=== PATIENT | female | born 1995 | race Caucasian/White ===

== ENCOUNTER 2022-12-04 08:11 | Outpatient (CLI) | payer MEDICAID, SELFPAY ==
--- NOTE | 2022-12-04 08:45 | CRLHL7_ITS ---
For Patients: As a result of the Cures Act, medical imaging exams and procedure reports are released immediately into your electronic medical record. You may view this report before your referring provider. If you have questions, please contact your health care provider. INDICATION: First trimester scan, establish dates. COMPARISON: None. TECHNIQUE: Real-time huynh-scale imaging of the pelvis was performed. FINDINGS: Sonographic imaging demonstrates a single living intrauterine gestation. The embryo demonstrates a regular cardiac rate measuring 179 beats per minute. The embryo`s crown-rump length measurement of 1.9 cm corresponds to a gestational age of 8 weeks 3 days with a sonographic due date of 07/13/2023. There is a normal-appearing yolk sac. There are no gross abnormalities noted within the embryo at this early state of development. The gestational sac has a normal appearance. There is no evidence of a perigestational hemorrhage. The amount of fluid within the sac appears appropriate for gestational age. The cervix is closed. The myometrium appears normal. The ovaries are of normal size. Corpus luteal cyst left ovary. There are no suspicious fluid collections noted in the cul-de-sac. IMPRESSION: Normal first trimester OB ultrasound exam. Gestational age calculated at 8 weeks 3 days with a sonographic due date of 07/13/2023. Dictated by Marbin Husain MD @ 12/04/2022 10:56:34 AM (Electronically Signed)
== END 2022-12-04 08:12 | disposition home or self-care (01) ==
PROVIDERS: Visit Provider Advanced Practice Midwife
DX: Z34.91 Encounter for supervision of normal pregnancy, unspecified, first trimester (principal); Z3A.09 9 weeks gestation of pregnancy
CPT/HCPCS: 76817

== ENCOUNTER 2022-12-04 10:35 | Outpatient (CLI) | payer OTHER, SELFPAY ==
[2022-12-04 15:44] LABS: Hepatitis B Surface Antigen* Negative (Negative)
[2022-12-04 15:53] LABS: HIV 1/2/P24 Combo Screen* Negative (Negative)
[2022-12-04 16:02] LABS: Hepatitis C Virus Antibody* Negative (Negative)
[2022-12-06 01:15] LABS: Rapid Plasma Reagin (RPR) Non Reactive (Non Reactive)
[2022-12-06 04:04] LABS: Varicella-Zoster Virus Ab, IgG 303.6 IV
== END 2022-12-04 10:36 | disposition home or self-care (01) ==
PROVIDERS: Visit Provider Advanced Practice Midwife
DX: Z34.91 Encounter for supervision of normal pregnancy, unspecified, first trimester (principal); Z13.79 Encounter for other screening for genetic and chromosomal anomalies; Z84.89 Family history of other specified conditions; Z3A.09 9 weeks gestation of pregnancy
CPT/HCPCS: 81420; 86592; 86703; 86762; 86787; 86803; 86850; 86900; 86901; 87086; 87340

== ENCOUNTER 2022-12-10 13:18 | Emergency (ER) | payer OTHER, SELFPAY ==
[2022-12-10 13:29] VITALS: BP 119/82; PULSE 66; RESP 18; TEMP 36.7; O2SAT 100; BMI 31.1
--- NOTE | 2022-12-10 17:15 | ED.GENADULT ---
HPI - General Adult General Time Seen by Provider: 17:16 Date Seen: 12/10/22 Chief complaint: Nausea/Vomiting Stated complaint: Vomiting, Can't keep down water, 10 weeks Time Seen by Provider: 12/10/22 17:13 Source: patient and RN notes reviewed Mode of arrival: ambulatory Limitations: no limitations History of Present Illness HPI narrative: Patient is a 27-year-old female about 10 weeks coming in with nausea vomiting, generalized headache. She has had some morning sickness or nausea vomiting this . She had 1 prior with a different partner where she was not affected by nausea and vomiting. She states she has had an ultrasound, nose there is a single 10. She did do blood work to see the sex of the baby and found out on her ride in here that they are having a boy. She has had a history of some UTIs before but denies any urinary symptoms with this. She has not had any fevers or chills. The nausea and vomiting was severe today to the point that she was not able to even get crackers or fluids in. She did get some crackers from nursing staff while she was awaiting to be seen in the ED and has subsequently kept those down. She has been able to take a few sips of water while waiting to be seen. She denies any abdominal pain, no cramping, no vaginal discharge or bleeding. No visual changes, has been able to ambulate. [place] a little numbness tingling in extremities, all at the same time. She denies any respiratory symptoms with this. States she has had COVID twice before and had a headache with it both times. Would want to be tested for COVID. Related Data Home Medications Medication Instructions Recorded Confirmed prenat.vits,kalina,[id number] 1 tab PO QDAY 12/04/22 12/04/22 Allergies Allergy/AdvReac Type Severity Reaction Status Date / Time pseudoephedrine Allergy Intermediate Verified 12/04/22 09:34 [facility] oxycodone AdvReac Mild Vomiting Verified 12/04/22 09:34 prednisone AdvReac Mild Vomiting Verified 12/04/22 09:34 Review of Systems Status of ROS: Reports: 10 or more systems reviewed and unremarkable except as noted in History and below [facility] Medical History Costochondritis COVID-19 Vaginal delivery Surgical History [place] teeth removed Family History Mother No problems noted. Father No problems noted. Maternal Grandmother Breast cancer Maternal Grandfather No problems noted. Paternal Grandfather Myocardial infarction Stroke Paternal Grandmother No problems noted. Social History Narrative: SOCIAL Education: High school Work: [employer] Partner: [employer] Lives with: Chauncey Grossman's Dad (Rich), [place] (son 50%) Pets: Dog Abuse: Denies past/present, partner present Special Diet: Denies Ok with a blood transfusion: yes Culture or jainism beliefs: denies RISK FACTORS Exercise Times/wk: At work, otherwise not active Depression/Anxiety: Hx of both; on Zoloft; No therapist WILFRID: 6 PHQ 9: 2 Seat Belt Use: Routinely Smoking: Denies past/present Alcohol/day: Denies while ; Rare prior to Caffeine: Coffee, occasionally Drug Use: Denies past/present Chicken Pox: vaccinated MRSA: Denies Smoking Status: Never smoker How often do you have a drink containing alcohol: never AUDIT-C Alcohol total score: 0 Non-prescribed substance use: denies use Little interest or pleasure in doing things: not at all Feeling down, depressed, or hopeless: several days service: No Exam Const: Vital Signs, click to edit/add: Vital Signs - 24 hr 12/10/22 13:29 Temperature 98.1 F Pulse Rate [Pulse Oximeter] 66 Respiratory Rate 18 Blood Pressure [Ri ght Upper Arm] 119/82 Pulse Oximetry 100 Oxygen Delivery Me thod Room Air Documenting provider has reviewed patient's vital signs: yes Common normals: no apparent distress, average body habitus, oriented x3, no limitations, healthy appearing, alert and well nourished General appearance: cooperative, comfortable, well kempt and well developed HENMT: Common normals: normocephalic, head/scalp atraumatic, hearing grossly normal bilaterally and external ears normal Head and scalp: normocephalic and atraumatic External ear: external ears normal Eye: Common normals: PERRL, EOMs intact bilaterally, conjunctivae normal and no scleral icterus Conjunctiva: conjunctiva(e) normal Pupil: PERRL Neck & C-Spine: Common normals: full ROM, no lymphadenopathy, supple, no meningeal signs, no JVD and thyroid normal Thyroid: thyroid normal Resp: Common normals: normal respiratory effort, no retractions, no use of accessory muscles and clear to auscultation bilaterally Auscultation: clear to auscultation bilaterally Cardio: Common normals: no JVD, regular rate, regular rhythm, S1 normal heart sound, S2 normal heart sound, no gallops, no clicks and no murmurs Rate: regular rate Rhythm: regular rhythm Heart sounds: S1 normal and S2 normal GI: Common normals: Normal to inspection, nondistended, normoactive bowel sounds present, soft to palpation, non-tender, no hepatosplenomegaly and no masses Palpation: soft and no hepatosplenomegaly Extremity: Common normals: normal to inspection and full ROM Neuro: Common normals: oriented x3, moves all extremities, no focal motor deficits and gait normal Sensorium/orientation: alert Meningeal signs: no meningeal signs Psych: Appearance: well kempt Course Course Hospital Course: Will establish an IV and give patient a L of IV fluids, 4 mg IV Zofran. She states she does have to urinate at this time, we will collect urinalysis both to see ketone levels as well as rule out underlying infection. Will get baseline labs. From the history, sounds like the headache was worsened after the nausea vomiting. We did discuss the possibility that she could have underlying infectious etiology like a viral gastroenteritis that is worsening her symptoms of what would seem to be morning sickness. She does understand that. Will try to treat her symptomatically at this time and see how she responds. Make sure labs are without any concerning changes. Reevaluation(s) Reevaluation #1: Reviewed with patient that she has 4+ ketones on her urine. Reviewed that I have ordered a 2nd L of fluids with 1 L of lactated Ringer's. We will see with the rest of her labs are showing, nursing staff just got her IV placed. I did question if she had Zofran at home and she states her graphics artist did not want her to have this yet, stated she was too early. We will be giving an IV dose here to help her control her nausea. We have discussed her calling her director of government sales/graphics artist tomorrow to ask for further guidance on the recommendations for nausea and vomiting. Will attempt to help control her symptoms here tonight, rule out any secondary causes for this. Time: 17:59 Reevaluation #2: Have reviewed that labs are looking reassuring. She is eating crackers, almost done with the 1st L of IV fluids. We will complete the 2nd L of IV fluids and plan a discharge for home. She still having a mild headache. She believes she could take and keep down oral Tylenol, will order this. When she is done with IV fluids, plan will be to discharge to home with plan of contacting her OB provider tomorrow. Time: 18:43 Vital Signs Vital signs: Initial Vital Signs Temperature 98.1 F 12/10/22 13:29 Temperature Source Temporal Artery Scan 12/10/22 13:29 Pulse Rate 66 12/10/22 13:29 Respiratory Rate 18 12/10/22 13:29 Blood Pressure 119/82 12/10/22 13:29 Blood Pressure Mean 94 12/10/22 13:29 Blood Pressure Position Supine 12/10/22 13:29 Pulse Oximetry 100 12/10/22 13:29 Oxygen Delivery Method 12/10/22 13:29 Vital Signs Temperature 98.1 F 12/10/22 13:29 Pulse Rate 66 12/10/22 13:29 Respiratory Rate 18 12/10/22 13:29 Blood Pressure 119/82 12/10/22 13:29 Pulse Oximetry 100 12/10/22 13:29 Oxygen Delivery Method 12/10/22 13:29 Temperature 98.1 F 12/10/22 13:29 Pulse Rate 66 12/10/22 13:29 Respiratory Rate 18 12/10/22 13:29 Blood Pressure 119/82 12/10/22 13:29 Pulse Oximetry 100 12/10/22 13:29 Oxygen Delivery Method 12/10/22 13:29 Medical Decision Making Lab Data Lab results reviewed: Yes I reviewed the patient's lab results Labs: Lab Results 12/10/22 12/10/22 12/10/22 Range/Units 17:28 17:35 17:55 WBC 10.79 (4.50-11.00) K/uL RBC 4.79 (4.00-5.20) m/uL Hgb 14.0 (12.0-16.0) gm/dL Hct 42.2 (33.0-51.0) % MCV 88 (80-100) fL MCH 29 (26-34) pg MCHC 33 (32-36) gm/dL RDW Coeff of Salome 12.6 (11.5-15.5) % Plt Count 270 (140-440) K/uL Neut % (Auto) 76.3 H (42.0-72.0) % Lymph % (Auto) 19.2 L (20-44) % [place] % (Auto) 3.8 (0.0-11.0) % Eos % (Auto) 0.2 (0.0-7.0) % Baso % (Auto) 0.3 (0.0-3.0) % Neut # (Auto) 8.20 H (1.7-7.0) K/uL Lymph # (Auto) 2.10 (0.90-2.90) K/uL [place] # (Auto) 0.40 (0.00-0.90) K/UL Eos # (Auto) 0.02 (0.00-0.50) K/uL Baso # (Auto) 0.03 (0.00-0.30) K/uL Sodium (135-149) mmol/L Potassium (3.6-5.1) mmol/L Chloride (96-114) mmol/L Carbon Dioxide (20-32) mmol/L BUN (5-24) mg/dL Creatinine (0.5-1.5) mg/dL Estimated Creat Clear Estimated GFR ml/min Glucose (60-115) mg/dL Lactate (0.5-1.9) mmol/L Calcium (8.4-10.6) mg/dL Total Bilirubin (0.1-1.5) mg/dL AST (12-35) U/L ALT (4-35) U/L Alkaline Phosphatase (40-150) U/L Total Protein (6.0-8.3) g/dL Albumin (3.3-5.0) g/dL Urine Color Yellow (Yellow) Urine Appearance Cloudy A (Clear) Urine pH 5.5 (5.0-8.5) Ur Specific [place] >= 1.030 (1.000-1.030) Urine Protein Trace A (Negative) Urine Glucose (UA) Negative (Negative) Urine Ketones 4+ A (Negative) Urine Blood Negative (Negative) Urine Nitrite Negative (Negative) Urine Bilirubin 1+ A (Negative) Urine Urobilinogen 0.2 (0.2-1.0) Ur Leukocyte Esterase Negative (Negative) Urine RBC 0-2 (0-2) Urine WBC 0-2 (0-5) Ur Squamous Epith Cells Few (None-Few) Urine Bacteria Few A (None) SARS-CoV-2 (PCR) Negative SARS-CoV-2 (Negative) 12/10/22 12/10/22 Range/Units 17:55 17:55 WBC (4.50-11.00) K/uL RBC (4.00-5.20) m/uL Hgb (12.0-16.0) gm/dL Hct (33.0-51.0) % MCV (80-100) fL MCH (26-34) pg MCHC (32-36) gm/dL RDW Coeff of Salome (11.5-15.5) % Plt Count (140-440) K/uL Neut % (Auto) (42.0-72.0) % Lymph % (Auto) (20-44) % [place] % (Auto) (0.0-11.0) % Eos % (Auto) (0.0-7.0) % Baso % (Auto) (0.0-3.0) % Neut # (Auto) (1.7-7.0) K/uL Lymph # (Auto) (0.90-2.90) K/uL [place] # (Auto) (0.00-0.90) K/UL Eos # (Auto) (0.00-0.50) K/uL Baso # (Auto) (0.00-0.30) K/uL Sodium 136 (135-149) mmol/L Potassium 3.8 (3.6-5.1) mmol/L Chloride 106 (96-114) mmol/L Carbon Dioxide 20 (20-32) mmol/L BUN 3 L (5-24) mg/dL Creatinine 0.4 L (0.5-1.5) mg/dL Estimated Creat Clear 167.09 Estimated GFR 139 ml/min Glucose 87 (60-115) mg/dL Lactate 0.9 (0.5-1.9) mmol/L Calcium 9.2 (8.4-10.6) mg/dL Total Bilirubin 1.0 (0.1-1.5) mg/dL AST 25 (12-35) U/L ALT 20 (4-35) U/L Alkaline Phosphatase 61 (40-150) U/L Total Protein 7.6 (6.0-8.3) g/dL Albumin 4.4 (3.3-5.0) g/dL Urine Color (Yellow) Urine Appearance (Clear) Urine pH (5.0-8.5) Ur Specific [place] (1.000-1.030) Urine Protein (Negative) Urine Glucose (UA) (Negative) Urine Ketones (Negative) Urine Blood (Negative) Urine Nitrite (Negative) Urine Bilirubin (Negative) Urine Urobilinogen (0.2-1.0) Ur Leukocyte Esterase (Negative) Urine RBC (0-2) Urine WBC (0-5) Ur Squamous Epith Cells (None-Few) Urine Bacteria (None) SARS-CoV-2 (PCR) (Negative) Critical Care Time Critical Care Time Critical Care Time: No Discharge Plan Discharge Clinical Impression: Nausea and vomiting during prior to 22 weeks gestation Patient Disposition: Home, Self-Care Condition: Stable Instructions: Nausea and Vomiting in (ED) Additional Instructions: Continue to try to take frequent small sips of fluids to stay hydrated. Solid foods as your appetite allows. You need to contact your OB provider tomorrow and discuss further management nausea and vomiting in . Can use Tylenol for per bottle directions for headache control. Prescriptions: No Action prenat.vits,kalina,[id number] Tablet 1 tab PO QDAY Follow Up/Referrals: Provider,Not a Local [Referring] - Stand Alone Forms: [facility] Info Instructions
[2022-12-10 17:39] LABS: Appearance Urine Cloudy (Clear); Bilirubin Urine 1+ (Negative); Blood Urine Negative (Negative); Color Urine Yellow (Yellow); Glucose Urine Negative (Negative); Ketones Urine 4+ (Negative); Leukocyte Esterase Urine Negative (Negative); Nitrite Urine Negative (Negative); Protein Urine Trace (Negative); Specific Gravity Urine >= 1.030 (1.000-1.030); Urobilinogen Urine 0.2 (0.2-1.0); pH Urine 5.5 (5.0-8.5)
[2022-12-10 18:04] LABS: Lactate* 0.9 mmol/L (0.5-1.9)
[2022-12-10 18:07] LABS: Basophils Absolute Auto 0.03 K/uL (0.00-0.30); Basophils Percent Auto 0.3 % (0.0-3.0); Eosinophils Absolute Auto 0.02 K/uL (0.00-0.50); Eosinophils Percent Auto 0.2 % (0.0-7.0); Hematocrit 42.2 % (33.0-51.0); Immature Granulocytes Abs Auto 0.02 K/uL (0.00-0.30); Immature Granulocytes Pct Auto 0.2 %; Lymphocytes Percent Auto 19.2 % (20-44); Mean Corpuscular HGB Conc 33 gm/dL (32-36); Mean Corpuscular Hemoglobin 29 pg (26-34); Mean Corpuscular Volume 88 fL (80-100); Monocytes Percent Auto 3.8 % (0.0-11.0); Neutrophils Percent Auto 76.3 % (42.0-72.0); Platelet Count* 270 K/uL (140-440); RDW Coefficient of Variation % 12.6 % (11.5-15.5); Red Blood Count 4.79 m/uL (4.00-5.20); White Blood Count* 10.79 K/uL (4.50-11.00)
[2022-12-10] MEDS: 0.9 % SODIUM CHLORIDE 1000 ml 1,000 ML IV (18:07)
[2022-12-10 18:08] LABS: Slide Review Reflex No
[2022-12-10 18:15] LABS: Bacteria Urine Few; RBC Urine 0-2 (0-2); Squamous Epithelial Cell Urine Few (None-Few); WBC Urine 0-2 (0-5)
[2022-12-10 18:24] LABS: Albumin* 4.4 g/dL (3.3-5.0); Chloride* 106 mmol/L (96-114); Sodium* 136 mmol/L (135-149)
[2022-12-10 18:25] LABS: Potassium* 3.8 mmol/L (3.6-5.1)
[2022-12-10 18:27] LABS: Aspartate Amino Transferase* 25 U/L (12-35); Carbon Dioxide* 20 mmol/L (20-32); Creatinine* 0.4 mg/dL (0.5-1.5); Est. Creatinine Clearance* 167.09; Estimated Glomerular Filt Rate 139 ml/min; Total Protein* 7.6 g/dL (6.0-8.3)
[2022-12-10 18:28] LABS: Alanine Aminotransferase* 20 U/L (4-35); Alkaline Phosphatase* 61 U/L (40-150); Blood Urea Nitrogen* 3 mg/dL (5-24); Calcium* 9.2 mg/dL (8.4-10.6); Glucose* 87 mg/dL (60-115)
[2022-12-10 18:28] LABS: SARS PCR* Negative SARS-CoV-2 (Negative)
[2022-12-10] MEDS: LACTATED RINGERS 1000 ML 1,000 ML IV (18:50)
[2022-12-10] MEDS: ACETAMINOPHEN 500 MG TABLET 1000 MG PO (18:51)
--- NOTE | 2022-12-10 19:22 | ED.NURSE ---
Patient states that she is still feeling dizzy and lightheaded.
--- NOTE | 2022-12-10 19:32 | ED.NURSE ---
Patient ambulated to the bathroom with assistance of RN. Patient was dizzy when going from laying to sitting at side of bed. While ambulating to the bathroom patient started that she was doing okay
== END 2022-12-10 19:53 | disposition home or self-care (01) ==
PROVIDERS: Emergency Provider Family Medicine; PCP Advanced Practice Midwife
DX: R11.2 Nausea with vomiting, unspecified (principal); Z3A.10 10 weeks gestation of pregnancy
CPT/HCPCS: 36415; 80053; 81001; 83605; 85025; 87086; 87635; 99283; 99284; A9270; J7030; J7120

== ENCOUNTER 2022-12-12 13:04 | Outpatient (CLI) | payer OTHER, SELFPAY | END 2022-12-12 13:05 | disposition home or self-care (01) | LOC: NFLDREF 13:05 | PROVIDERS: PCP Advanced Practice Midwife; Visit Provider Advanced Practice Midwife | DX: R30.9 Painful micturition, unspecified (principal) | CPT/HCPCS: 87086 ==

== ENCOUNTER 2022-12-17 13:42 | Emergency (ER) | payer MEDICAID, SELFPAY ==
[2022-12-17 13:49] VITALS: BP 120/82; PULSE 110; RESP 18; TEMP 37; O2SAT 98; BMI 31.6
--- NOTE | 2022-12-17 14:15 | ED.ANXIETY ---
HPI - Anxiety General Chief Complaint: Anxiety Stated Complaint: Anxiety attack, 11 weeks Time Seen by Provider: 12/17/22 14:06 History of Present Illness HPI narrative: This 27-year-old female states that she is 11 weeks . She comes in because of lots of anxiety and some episodes of panic. This stems from a concerned that everything is okay with her . She is not describing any crampy pain or vaginal discharge. She states also that she has some worries about another child that she gave to that she did put up for adoption. She states that she has been on antidepressant antianxiety medicine in the past. She was taking sertraline but has not been on this medicine currently or recently. She has taken hydroxyzine in the past with some relief for her anxiety symptoms. She is not reporting any suicidality or feeling unsafe to herself. Related Data Home Medications Medication Instructions Recorded Confirmed prenat.vits,kalina,[id number]-[id number] 1 tab PO QDAY 12/04/22 12/12/22 Previous Rx's Medication Instructions Recorded metoclopramide HCl 10 mg tablet 10 mg PO Q6-8H PRN nausea and 12/12/22 (Reglan) vomiting #30 tabs sertraline 50 mg tablet (Zoloft) 50 mg PO QDAY #30 tabs 12/12/22 hydroxyzine HCl 25 mg tablet 25 mg PO QID PRN Anxiety #15 tabs 12/17/22 Allergies Allergy/AdvReac Type Severity Reaction Status Date / Time pseudoephedrine Allergy Intermediate Verified 12/17/22 13:54 [From [facility]] oxycodone AdvReac Mild Vomiting Verified 12/17/22 13:54 prednisone AdvReac Mild Vomiting Verified 12/17/22 13:54 Review of Systems Status of ROS: Reports: 10 or more systems reviewed and unremarkable except as noted in History and below Narrative: Constitutional: No fevers, no weight gain or loss. Eyes: No discharge. No vision changes. HENT: No congestion, no sore throat, no ear pain. Cardiovascular: No chest pain, no palpitations. Respiratory: No shortness of breath, no wheezes, no cough. Gastrointestinal: No abdominal pain, no vomiting, no diarrhea. Genitourinary: No dysuria, no hematuria. Musculoskeletal: Normal range of motion. Skin: No rashes, no pruritis. Neurological: No dizziness, weakness, sensory change, speech change. Endo/Heme/Allergies: No bruising or bleeding. No polydipsia. Pysch: no suicidality. She reports anxiety symptoms as described above. All other systems reviewed and are negative. [facility] Medical History (Updated 12/17/22 @ 14:56 by Kj Aponte MD) Costochondritis COVID-19 Vaginal delivery Surgical History (Updated 12/12/22 @ 20:10 by Bessy Moreno CNM) History of vacuum extraction assisted delivery [place] teeth removed Family History Mother No problems noted. Father No problems noted. Maternal Grandmother Breast cancer Maternal Grandfather No problems noted. Paternal Grandfather Myocardial infarction Stroke Paternal Grandmother No problems noted. Social History Narrative: SOCIAL Education: High school Work: [employer] [facility] Partner: [employer] Lives with: Chauncey Grossman's Dad ([place]), [place] (son 50%) Pets: Dog Abuse: Denies past/present, partner present Special Diet: Denies Ok with a blood transfusion: yes Culture or gnosticist beliefs: denies RISK FACTORS Exercise Times/wk: At work, otherwise not active Depression/Anxiety: Hx of both; on Zoloft; No therapist WILFRID: 6 PHQ 9: 2 Seat Belt Use: Routinely Smoking: Denies past/present Alcohol/day: Denies while ; Rare prior to Caffeine: Coffee, occasionally Drug Use: Denies past/present Chicken Pox: vaccinated MRSA: Denies Smoking Status: Never smoker How often do you have a drink containing alcohol: never AUDIT-C Alcohol total score: 0 Non-prescribed substance use: denies use Little interest or pleasure in doing things: several days Feeling down, depressed, or hopeless: more than half the days service: No Exam Narrative: Exam Narrative: Constitutional: Well-developed, well-nourished, no acute distress. HEENT: Normocephalic, atraumatic. Neck: Normal range of motion. Nontender. Supple. Heart: Regular. No murmurs. Normal rate. Intact distal pulses. Lungs: Clear to auscultation. No chest discomfort. No wheezes, rhonchi, or rales. Abdomen: Normal bowel sounds. Nontender. No rebound tenderness. Gravid at 11 weeks gestation. Genitalia: Deferred. Back: No midline tenderness. Normal range of motion. Extremities: Normal range of motion. No injury. Skin: Intact. No rash. Warm. No erythema or pallor. Neurologic: No altered sensation. No weakness. Alert and oriented. Psychiatric: No suicidality. No anxiety or depression. No insomnia. Nursing notes and vitals signs are reviewed. Const: Vital Signs, click to edit/add: Vital Signs - 24 hr 12/17/22 13:49 Temperature 98.6 F Pulse Rate [Pulse Oximeter] 110 H Respiratory Rate 18 Blood Pressure [Ri t Upper Arm] 120/82 Pulse Oximetry 98 Oxygen Delivery Me thod Room Air Course Vital Signs Vital signs: Initial Vital Signs Temperature 98.6 F 12/17/22 13:49 Temperature Source Temporal Artery Scan 12/17/22 13:49 Pulse Rate 110 H 12/17/22 13:49 Pulse Rhythm 12/17/22 13:49 Pulse Strength 3+ Normal 12/17/22 13:49 Respiratory Rate 18 12/17/22 13:49 Blood Pressure 120/82 12/17/22 13:49 Blood Pressure Mean 94 12/17/22 13:49 Blood Pressure Position Sitting 12/17/22 13:49 Pulse Oximetry 98 12/17/22 13:49 Oxygen Delivery Method 12/17/22 13:49 Vital Signs Temperature 98.6 F 12/17/22 13:49 Pulse Rate 110 H 12/17/22 13:49 Respiratory Rate 18 12/17/22 13:49 Blood Pressure 120/82 12/17/22 13:49 Pulse Oximetry 98 12/17/22 13:49 Oxygen Delivery Method 12/17/22 13:49 Temperature 98.6 F 12/17/22 13:49 Pulse Rate 110 H 12/17/22 13:49 Respiratory Rate 18 12/17/22 13:49 Blood Pressure 120/82 12/17/22 13:49 Pulse Oximetry 98 12/17/22 13:49 Oxygen Delivery Method 12/17/22 13:49 MDM - Anxiety MDM Narrative Medical decision making narrative: This patient is 11 weeks and has history of anxiety but not on any medicine currently. She reports anxiety about this in wondering if it is progressing normally. Bedside ultrasound performed by me shows a normal intrauterine with normal heart activity. This was greatly reassuring to the patient. She is okay to be discharged home. She did receive a prescription for hydroxyzine. She has a follow-up appointment with her primary physician in 2 or 3 days. Discharge Plan Discharge Clinical Impression: , Acute anxiety Patient Disposition: Home, Self-Care Condition: Stable Additional Instructions: Continue current plans. Follow up with MD as scheduled. Take medication as needed and directed. Return if worsening. Prescriptions: New hydroxyzine HCl 25 mg tablet 25 mg PO QID PRN (Reason: Anxiety) Qty: 15 0RF No Action prenat.vits,kalina,[id number] Tablet 1 tab PO QDAY metoclopramide HCl [Reglan] 10 mg tablet 10 mg PO Q6-8H PRN (Reason: nausea and vomiting) Qty: 30 1RF sertraline [Zoloft] 50 mg tablet 50 mg PO QDAY Qty: 30 0RF Follow Up/Referrals: Bessy Moreno CNM [Primary Care Provider] - Stand Alone Forms: [facility] Info Instructions Procedures Ultrasound Other exam #1: Anatomical areas examined: Uterus in lower abdomen Indications: 11 week gestation . Description/findings: Normal intrauterine with identifiable heart activity. Impression: Normal intrauterine at 11 weeks gestation.
== END 2022-12-17 15:18 | disposition home or self-care (01) ==
PROVIDERS: Emergency Provider Emergency Medicine Emergency Medical Services; PCP Advanced Practice Midwife
DX: F41.9 Anxiety disorder, unspecified (principal); Z3A.11 11 weeks gestation of pregnancy
CPT/HCPCS: 76815; 99283; 99284

== ENCOUNTER 2022-12-19 12:22 | Outpatient (CLI) | payer MEDICAID, SELFPAY | END 2022-12-19 12:23 | disposition home or self-care (01) | LOC: NFLDREF 12-27 11:55 | PROVIDERS: PCP Advanced Practice Midwife; Referring Provider Advanced Practice Midwife; Visit Provider Advanced Practice Midwife | DX: Z34.91 Encounter for supervision of normal pregnancy, unspecified, first trimester (principal); Z3A.11 11 weeks gestation of pregnancy | CPT/HCPCS: 87491; 87591 ==

== ENCOUNTER 2022-12-25 08:51 | Emergency (ER) | payer MEDICAID, SELFPAY ==
[2022-12-25] VITALS (17 sets, daily range): BP systolic 87–117; BP diastolic 55–85; PULSE 71–96; RESP 16; TEMP 36.3; O2SAT 89–100; BMI 31.6
[2022-12-25 09:50] LABS: Basophils Absolute Auto 0.02 K/uL (0.00-0.30); Basophils Percent Auto 0.2 % (0.0-3.0); Eosinophils Absolute Auto 0.01 K/uL (0.00-0.50); Eosinophils Percent Auto 0.1 % (0.0-7.0); Hematocrit 40.3 % (33.0-51.0); Hemoglobin* 13.2 gm/dL (12.0-16.0); Immature Granulocytes Abs Auto 0.01 K/uL (0.00-0.30); Immature Granulocytes Pct Auto 0.1 %; Lymphocytes Percent Auto 14.7 % (20-44); Mean Corpuscular HGB Conc 33 gm/dL (32-36); Mean Corpuscular Hemoglobin 29 pg (26-34); Mean Corpuscular Volume 89 fL (80-100); Monocytes Percent Auto 2.8 % (0.0-11.0); Neutrophils Percent Auto 82.1 % (42.0-72.0); Platelet Count* 253 K/uL (140-440); RDW Coefficient of Variation % 12.4 % (11.5-15.5); Red Blood Count 4.53 m/uL (4.00-5.20); White Blood Count* 9.24 K/uL (4.50-11.00)
[2022-12-25] MEDS: 0.9 % SODIUM CHLORIDE 1000 ml 1,000 ML IV ×2 (09:50→11:30)
[2022-12-25] MEDS: ONDANSETRON 2 MG/ML inj 4 MG IVP (09:50)
[2022-12-25 10:01] LABS: Appearance Urine Clear (Clear); Bilirubin Urine Negative (Negative); Blood Urine Negative (Negative); Color Urine Yellow (Yellow); Glucose Urine Negative (Negative); Ketones Urine 4+ (Negative); Leukocyte Esterase Urine 1+ (Negative); Nitrite Urine Negative (Negative); Protein Urine 1+ (Negative); Specific Gravity Urine 1.025 (1.000-1.030); Urobilinogen Urine 0.2 (0.2-1.0); pH Urine 7.5 (5.0-8.5)
[2022-12-25 10:05] LABS: Slide Review Reflex No
[2022-12-25 10:12] LABS: Chloride* 103 mmol/L (96-114); Potassium* 3.8 mmol/L (3.6-5.1); Sodium* 135 mmol/L (135-149)
[2022-12-25 10:14] LABS: Creatinine* 0.4 mg/dL (0.5-1.5); Est. Creatinine Clearance* 167.09; Estimated Glomerular Filt Rate 139 ml/min
[2022-12-25 10:15] LABS: Blood Urea Nitrogen* 3 mg/dL (5-24); Calcium* 9.1 mg/dL (8.4-10.6); Carbon Dioxide* 26 mmol/L (20-32); Glucose* 92 mg/dL (60-115)
--- NOTE | 2022-12-25 10:27 | ED_ITS ---
HPI - General Adult General Date Seen: 12/25/22 Chief complaint: Unspecified Complaint, Adult Stated complaint: 12 wks preg/in and out of consciousness/vomiting Time Seen by Provider: 12/25/22 09:34 Source: patient Mode of arrival: ambulatory Limitations: no limitations History of Present Illness HPI narrative: Patient is a 27-year-old female presents here for of vomiting, since midnight. She was driving her to work, and noted that she was going in and out of consciousness, with this. 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 She started on Zoloft and Atarax for this. She took 1 of the Atarax last night but has not taken any since. Denies any current abdominal pain fevers chills nausea vomiting. Last vomit approximate 20 minutes before being seen. She tells me her has been uneventful she denies any vaginal bleeding, cramping down below, but is intensely worried about her baby. Treatments prior to arrival: none Related Data Home Medications Medication Instructions Recorded Confirmed prenat.vits,kalina,[id number] 1 tab PO QDAY 12/04/22 12/19/22 Previous Rx's Medication Instructions Recorded metoclopramide HCl 10 mg tablet 10 mg PO Q6-8H PRN nausea and 12/12/22 (Reglan) vomiting #30 tabs sertraline 50 mg tablet (Zoloft) 50 mg PO QDAY #30 tabs 12/12/22 azithromycin 500 mg tablet 1,000 mg PO ONCE #2 tabs 12/19/22 hydroxyzine HCl 25 mg tablet 25 mg PO QID PRN Anxiety #15 tabs 12/19/22 cephalexin 500 mg capsule 500 mg PO BID #10 caps 12/25/22 Allergies Allergy/AdvReac Type Severity Reaction Status Date / Time pseudoephedrine Allergy Intermediate Verified 12/19/22 12:36 [From Sudafed] oxycodone AdvReac Mild Vomiting Verified 12/19/22 12:36 prednisone AdvReac Mild Vomiting Verified 12/19/22 12:36 Review of Systems Status of ROS: Reports: 10 or more systems reviewed and unremarkable except as noted in History and below [facility] Medical History Costochondritis COVID-19 Vaginal delivery Surgical History History of vacuum extraction assisted delivery [place] teeth removed Family History Mother No problems noted. Father No problems noted. Maternal Grandmother Breast cancer Maternal Grandfather No problems noted. Paternal Grandfather Myocardial infarction Stroke Paternal Grandmother No problems noted. Social History Narrative: SOCIAL Education: High school Work: [employer] Partner: [employer] Lives with: Chauncey Grossman's Dad (Rich), Tino (son 50%) Pets: Dog Abuse: Denies past/present, partner present Special Diet: Denies Ok with a blood transfusion: yes Culture or sabianism beliefs: denies RISK FACTORS Exercise Times/wk: At work, otherwise not active Depression/Anxiety: Hx of both; on Zoloft; No therapist WILFRID: 6 PHQ 9: 2 Seat Belt Use: Routinely Smoking: Denies past/present Alcohol/day: Denies while ; Rare prior to Caffeine: Coffee, occasionally Drug Use: Denies past/present Chicken Pox: vaccinated MRSA: Denies Smoking Status: Never smoker How often do you have a drink containing alcohol: never AUDIT-C Alcohol total score: 0 Non-prescribed substance use: denies use Little interest or pleasure in doing things: several days Feeling down, depressed, or hopeless: more than half the days service: No Exam Narrative: Exam Narrative: She is seen in room 7 she appears to be in no apparent distress. Pupils are equal round reactive to light there is no scleral icterus or redness. Her neck is supple full range of motion is listed with absence of meningismus. Her chest is clear bilaterally with no wheezing crackles noted, heart sounds are normal, abdomen is soft, nongravid, with no tenderness to palpation. This is expected with a 12 week uterus. She has had ultrasounds this which confirm she has a male baby. Back is nontender to palpation, no percussive tenderness, skin real petechiae or rashes. She moves all extremities independently and well. Const: Vital Signs, click to edit/add: Vital Signs - 24 hr 12/25/22 09:01 12/25/22 09:22 12/25/22 09:33 Temperature 97.4 F L Pulse Rate 87 88 Pulse Rate [Left P ulse Oximeter] 96 Respiratory Rate 16 Blood Pressure Blood Pressure [Le ft Upper Arm] 117/85 Pulse Oximetry 99 100 99 Oxygen Delivery Me thod Room Air 12/25/22 09:42 12/25/22 10:02 12/25/22 10:32 Temperature Pulse Rate Pulse Rate [Left P ulse Oximeter] Respiratory Rate Blood Pressure 103/78 111/69 104/78 Blood Pressure [Le ft Upper Arm] Pulse Oximetry Oxygen Delivery Me thod 12/25/22 11:02 12/25/22 11:08 12/25/22 11:17 Temperature Pulse Rate 71 Pulse Rate [Left P ulse Oximeter] Respiratory Rate Blood Pressure 87/55 L 88/58 L Blood Pressure [Le ft Upper Arm] Pulse Oximetry 96 Oxygen Delivery Me thod 12/25/22 11:18 12/25/22 11:19 12/25/22 11:30 Temperature Pulse Rate 83 75 79 Pulse Rate [Left P ulse Oximeter] Respiratory Rate Blood Pressure 98/67 Blood Pressure [Le ft Upper Arm] Pulse Oximetry 100 97 100 Oxygen Delivery Me thod 12/25/22 11:31 12/25/22 11:45 12/25/22 12:00 Temperature Pulse Rate 81 75 72 Pulse Rate [Left P ulse Oximeter] Respiratory Rate Blood Pressure 95/62 Blood Pressure [Le ft Upper Arm] Pulse Oximetry 99 100 100 Oxygen Delivery Me thod 12/25/22 12:01 12/25/22 12:15 Temperature Pulse Rate 78 74 Pulse Rate [Left P ulse Oximeter] Respiratory Rate Blood Pressure 97/61 Blood Pressure [Le ft Upper Arm] Pulse Oximetry 100 89 Oxygen Delivery Me thod Documenting provider has reviewed patient's vital signs: yes Course Course Hospital Course: I discussed with her that we will do laboratory test to rule out any acute abnormality, I will give her some IV fluid and some Zofran. I do suspect that there is also strong overlay of anxiety here however, she denies any suicidal or homicidal ideation. Agrees with me that this probably is anxiety. Reevaluation(s) Reevaluation #1: Patient is doing better, her laboratory came back showing reassuring findings. She has had no episodes of vomiting, I think we can discharge her home after 2 L of fluid, she did have a bruise on her left brachial area, which she confided in me was from the IV which she got at [facility] 3 days ago. I will have her take Keflex for a bladder infection, continue with fluids and follow-up with primary care but I do believe there is a strong anxiety component with this. Vital Signs Vital signs: Initial Vital Signs Temperature 97.4 F L 12/25/22 09:01 Temperature Source Temporal Artery Scan 12/25/22 09:01 Pulse Rate 96 12/25/22 09:01 Pulse Rhythm 12/25/22 09:01 Pulse Strength 3+ Normal 12/25/22 09:01 Respiratory Rate 16 12/25/22 09:01 Blood Pressure 117/85 12/25/22 09:01 Blood Pressure Mean 95 12/25/22 09:01 Blood Pressure Position Sitting 12/25/22 09:01 Pulse Oximetry 99 12/25/22 09:01 Oxygen Delivery Method 12/25/22 09:01 Vital Signs Temperature 97.4 F L 12/25/22 09:01 Pulse Rate 96 12/25/22 09:01 Respiratory Rate 16 12/25/22 09:01 Blood Pressure 117/85 12/25/22 09:01 Pulse Oximetry 99 12/25/22 09:01 Oxygen Delivery Method 12/25/22 09:01 Temperature 97.4 F L 12/25/22 09:01 Pulse Rate 74 12/25/22 12:15 Respiratory Rate 16 12/25/22 09:01 Blood Pressure 97/61 12/25/22 12:01 Pulse Oximetry 89 12/25/22 12:15 Oxygen Delivery Method 12/25/22 09:01 Medical Decision Making MDM Narrative Medical decision making narrative: Life-threatening differential diagnosis considered include stroke, coronary artery disease, pneumonia, and heart failure. Other differential diagnosis include but are not limited to electrolyte imbalances, anemia, medication reactions, and urinary tract infection Medical Records Medical records reviewed: Yes I reviewed the patient's medical records Lab Data Lab results reviewed: Yes I reviewed the patient's lab results Labs: Lab Results 12/25/22 12/25/22 12/25/22 Range/Units 09:30 09:42 09:42 WBC 9.24 (4.50-11.00) K/uL RBC 4.53 (4.00-5.20) m/uL Hgb 13.2 (12.0-16.0) gm/dL Hct 40.3 (33.0-51.0) % MCV 89 (80-100) fL MCH 29 (26-34) pg MCHC 33 (32-36) gm/dL RDW Coeff of Salome 12.4 (11.5-15.5) % Plt Count 253 (140-440) K/uL Neut % (Auto) 82.1 H (42.0-72.0) % Lymph % (Auto) 14.7 L (20-44) % [place] % (Auto) 2.8 (0.0-11.0) % Eos % (Auto) 0.1 (0.0-7.0) % Baso % (Auto) 0.2 (0.0-3.0) % Neut # (Auto) 7.60 H (1.7-7.0) K/uL Lymph # (Auto) 1.40 (0.90-2.90) K/uL [place] # (Auto) 0.30 (0.00-0.90) K/UL Eos # (Auto) 0.01 (0.00-0.50) K/uL Baso # (Auto) 0.02 (0.00-0.30) K/uL Sodium 135 (135-149) mmol/L Potassium 3.8 (3.6-5.1) mmol/L Chloride 103 (96-114) mmol/L Carbon Dioxide 26 (20-32) mmol/L BUN 3 L (5-24) mg/dL Creatinine 0.4 L (0.5-1.5) mg/dL Estimated Creat Clear 167.09 Estimated GFR 139 ml/min Glucose 92 (60-115) mg/dL Calcium 9.1 (8.4-10.6) mg/dL Urine Color Yellow (Yellow) Urine Appearance Clear (Clear) Urine pH 7.5 (5.0-8.5) Ur Specific [place] 1.025 (1.000-1.030) Urine Protein 1+ A (Negative) Urine Glucose (UA) Negative (Negative) Urine Ketones 4+ A (Negative) Urine Blood Negative (Negative) Urine Nitrite Negative (Negative) Urine Bilirubin Negative (Negative) Urine Urobilinogen 0.2 (0.2-1.0) Ur Leukocyte Esterase 1+ A (Negative) Urine RBC 0-2 (0-2) Urine WBC 5-10 A (0-5) Ur Squamous Epith Cells Moderate A (None-Few) Urine Bacteria Many A (None) Urine Mucus Moderate A (None) Discharge Plan Discharge Clinical Impression: Urinary tract infection, Anxiety, , Vomiting Patient Disposition: Home, Self-Care Condition: Stable Instructions: Acute Nausea and Vomiting (ED), Anxiety (ED), Urinary Tract Infection in (ED), at 11 to 14 Weeks (ED) Additional Instructions: Home rest follow-up with your primary care physician within the next 24-72 hours. Take your medications as directed. You may use your reglan also for vomiting Prescriptions: New cephalexin 500 mg capsule 500 mg PO BID Qty: 10 0RF No Action prenat.vits,kalina,[id number] Tablet 1 tab PO QDAY metoclopramide HCl [Reglan] 10 mg tablet 10 mg PO Q6-8H PRN (Reason: nausea and vomiting) Qty: 30 1RF sertraline [Zoloft] 50 mg tablet 50 mg PO QDAY Qty: 30 0RF hydroxyzine HCl 25 mg tablet 25 mg PO QID PRN (Reason: Anxiety) Qty: 15 0RF azithromycin 500 mg tablet 1,000 mg PO ONCE Qty: 2 0RF Follow Up/Referrals: Provider,Not a Local [Primary Care Provider] - Stand Alone Forms: Personetath Info Instructions
[2022-12-25 10:36] LABS: Bacteria Urine Many; Mucus Urine Moderate; RBC Urine 0-2 (0-2); Squamous Epithelial Cell Urine Moderate (None-Few)
--- NOTE | 2022-12-25 12:29 | PC.NURSE ---
FHT 165-177 per doppler.
== END 2022-12-25 12:33 | disposition home or self-care (01) ==
PROVIDERS: Emergency Provider Family Medicine
DX: N39.0 Urinary tract infection, site not specified (principal); F41.9 Anxiety disorder, unspecified; R11.10 Vomiting, unspecified; Z3A.12 12 weeks gestation of pregnancy
CPT/HCPCS: 36415; 80048; 81001; 85025; 87086; 96374; 99284; J2405; J7030

== ENCOUNTER 2023-01-25 09:10 | Outpatient (CLI) | payer MEDICAID, SELFPAY | END 2023-01-25 09:11 | disposition home or self-care (01) | LOC: NFLDREF 01-26 07:01 | PROVIDERS: Visit Provider Advanced Practice Midwife | DX: O98.812 Other maternal infectious and parasitic diseases complicating pregnancy, second trimester (principal); F41.9 Anxiety disorder, unspecified; F32.A Depression, unspecified; A74.9 Chlamydial infection, unspecified; Z34.82 Encounter for supervision of other normal pregnancy, second trimester | CPT/HCPCS: 0353U; 87491; 87591 ==